=== PATIENT | female | born 1985 | race Caucasian/White ===

== ENCOUNTER → 2018-09-12 | Outpatient (CLI) | payer OTHER ==
[~2018-09-12] MED LIST: BACTRIM DS 8001 TA1 PO; BIAXIN500 MG PO; CIPROFLOXACIN500 MG PO; CYCLOBENZAPRINE5 M3 PO; FERROUS FUMARA325 MG PO; IBUPROFEN600 MG PO; MIRALAX POWDER17 G1 PO; Motrin,Rufen800 MG PO; NORCO 5-325 TA1 EACH PO; ROBITUSSIN; ROBITUSSIN AC,G30 ML PO; VENLAFAXINE37.5 MG PO; VIBRAMYCIN100 MG PO; VICODIN 500 MG-1 TAB PO; VOLTAREN50 M1 PO
[2018-09-12 15:05] LABS: HEMATOCRIT 42.2 % (37.0-47.0); HEMOGLOBIN 13.9 g/dl (12.0-16.0); MEAN CELL VOLUME 94.6 fl (81.0-99.0); MEAN CORPUSCULAR HGB 31.2 pg (27.0-31.0); MEAN CORPUSCULAR HGB CONC 32.9 g/dl (33.0-37.0); MEAN PLATELET VOLUME 10.8 fl (9.6-12.3); RED BLOOD COUNT 4.46 10*6/uL (4.10-5.10); RED CELL DISTRI WIDTH 12.9 % (0-14.5); WHITE BLOOD COUNT 12.3 10*3/uL (4.8-10.8)
[2018-09-12 15:34] LABS: ALBUMIN 3.5 gm/dl (3.1-4.5); ALKALINE PHOSPHATASE 95 U/L (45-117); BUN 7 mg/dl (7-24); CHLORIDE 109 mmol/L (98-107); CREATININE 0.89 mg/dL (0.55-1.02); POTASSIUM 3.9 mmol/L (3.5-5.1); SGOT/AST 28 IU/L (3-35); SGPT/ALT 49 U/L (12-78); SODIUM 141 mmol/L (136-145); TOTAL PROTEIN 7.2 gm/dL (6.4-8.2)
[2018-09-13 09:07] LABS: RHEUMATOID ARTHRITIS FACTOR <10.0 IU/mL (0.0-13.9)
== END | disposition home or self-care (01) ==
LOC: LAB 14:29
PROVIDERS: Family Medicine
DX: E74.00 Glycogen storage disease, unspecified (principal); F41.1 Generalized anxiety disorder; M25.50 Pain in unspecified joint; R53.83 Other fatigue

== ENCOUNTER 2019-05-30 13:56 | Emergency (ER) | payer OTHER ==
[~2019-05-30] VITALS: Ht 152.4 cm; Wt 59.0 kg
[2019-05-30 13:59] VITALS: BP 125/75
[2019-05-30] MEDS ORDERED: AUGMENTIN 875-875 MG PO (16:05)
[2019-05-30] MEDS ORDERED: CORTISPORIN SUS10 ML OT (16:05)
[2019-05-30] MEDS ORDERED: TESSALON PERLE100 M1 PO (16:07)
== END 2019-05-30 16:49 | disposition home or self-care (01) ==
LOC: ED 13:56
DX: H66.91 Otitis media, unspecified, right ear (principal); J06.9 Acute upper respiratory infection, unspecified; J02.9 Acute pharyngitis, unspecified; F17.200 Nicotine dependence, unspecified, uncomplicated

== ENCOUNTER → 2020-11-27 | Outpatient (CLI) | payer OTHER ==
[~2020-11-27] MED LIST changes: +AUGMENTIN 875-875 MG PO; +CORTISPORIN SUS10 ML OT; +TESSALON PERLE100 M1 PO
== END | disposition home or self-care (01) ==
LOC: RAD 16:53
PROVIDERS: ATTEND Nurse Practitioner Family
DX: R06.2 Wheezing (principal); Z20.822 Contact with and (suspected) exposure to COVID-19

== ENCOUNTER → 2020-11-28 | Outpatient (CLI) | payer OTHER ==
[2020-11-28 12:09] LABS: BASO # 0.1 10*3/uL (0.0-0.1); BASO % 1.1 % (0.0-1.0); EOS # 0.4 10*3/uL (0.0-0.4); EOS % 6.8 % (1.0-4.0); HEMATOCRIT 41.6 % (37.0-47.0); LYMPH # 1.5 10*3/uL (1.3-4.4); LYMPH % 28.8 % (27.0-41.0); MEAN CELL VOLUME 94.8 fl (81.0-99.0); MEAN CORPUSCULAR HGB 30.8 pg (27.0-31.0); MEAN CORPUSCULAR HGB CONC 32.5 g/dl (33.0-37.0); MEAN PLATELET VOLUME 11.5 fl (9.6-12.3); MONO # 0.5 10*3/uL (0.1-1.0); MONO % 8.5 % (3.0-9.0); NEUT # 2.9 10*3/uL (2.3-7.9); NEUT % 54.4 % (47.0-73.0); PLATELET COUNT AUTOMATED 203 10*3/uL (130-400); RED BLOOD COUNT 4.39 10*6/uL (4.10-5.10); RED CELL DISTRI WIDTH 13.5 % (0-14.5); WHITE BLOOD COUNT 5.3 10*3/uL (4.8-10.8)
[2020-11-28 12:23] LABS: ALBUMIN 3.4 gm/dl (3.1-4.5); ALKALINE PHOSPHATASE 82 U/L (45-117); BUN 5 mg/dl (7-24); CHLORIDE 108 mmol/L (98-107); CREATININE 0.68 mg/dL (0.55-1.02); POTASSIUM 4.1 mmol/L (3.5-5.1); SGOT/AST 31 IU/L (3-35); SGPT/ALT 31 U/L (12-78); SODIUM 141 mmol/L (136-145); TOTAL PROTEIN 7.2 gm/dL (6.4-8.2)
== END | disposition home or self-care (01) ==
LOC: LAB 11:21
PROVIDERS: ATTEND Family Medicine
DX: R53.83 Other fatigue (principal); J18.9 Pneumonia, unspecified organism

== ENCOUNTER 2021-07-18 13:39 | Emergency (ER) | payer OTHER ==
[~2021-07-18] VITALS: Ht 154.9 cm; Wt 63.5 kg
[2021-07-18 13:49] VITALS: BP 130/90
[2021-07-18] MEDS ORDERED: CIPRODEX 0.3%-7.5 ML OT (14:56)
[2021-07-18] MEDS ORDERED: CEFDINIR300 MG PO (14:56)
== END 2021-07-18 15:05 | disposition home or self-care (01) ==
LOC: ED 13:39
DX: H66.93 Otitis media, unspecified, bilateral (principal); H60.503 Unspecified acute noninfective otitis externa, bilateral; F17.200 Nicotine dependence, unspecified, uncomplicated

== ENCOUNTER → 2022-02-08 | Outpatient (CLI) | payer OTHER ==
[~2022-02-08] MED LIST changes: +CEFDINIR300 MG PO; +CIPRODEX 0.3%-7.5 ML OT
[2022-02-08 18:25] LABS: HEMATOCRIT 45.6 % (37.0-47.0); MEAN CELL VOLUME 94.6 fl (81.0-99.0); MEAN CORPUSCULAR HGB 30.7 pg (27.0-31.0); MEAN CORPUSCULAR HGB CONC 32.5 g/dl (33.0-37.0); MEAN PLATELET VOLUME 10.5 fl (9.6-12.3); RED BLOOD COUNT 4.82 10*6/uL (4.10-5.10); RED CELL DISTRI WIDTH 13.6 % (0-14.5)
[2022-02-08 18:42] LABS: ALKALINE PHOSPHATASE 106 U/L (45-117); BUN 10 mg/dl (7-24); CHLORIDE 106 mmol/L (98-107); CHOLESTEROL 214 mg/dL (<200); CREATININE 0.81 mg/dL (0.55-1.02); LDL CHOLESTEROL 128 mg/dL (9-159); SGOT/AST 18 IU/L (3-35); SGPT/ALT 27 U/L (12-78); SODIUM 140 mmol/L (136-145); TOTAL PROTEIN 8.1 gm/dL (6.4-8.2); TRIGLYCERIDES 220 mg/dl (<150)
[2022-02-10 04:06] LABS: RHEUMATOID FACTOR <10.0 IU/mL (<14.0)
== END | disposition home or self-care (01) ==
LOC: LAB 17:29
PROVIDERS: ATTEND Family Medicine
DX: Z00.00 Encounter for general adult medical examination without abnormal findings (principal); M25.50 Pain in unspecified joint; E55.9 Vitamin D deficiency, unspecified; E03.9 Hypothyroidism, unspecified; M79.10 Myalgia, unspecified site

== ENCOUNTER 2022-02-18 17:45 | Emergency (ER) | payer OTHER ==
[~2022-02-18] VITALS: Ht 154.9 cm; Wt 73.9 kg
[2022-02-18 17:57] VITALS: BP 138/76
[2022-02-18] MEDS ORDERED: AMOX-CLAV 875-1 EACH PO (18:33)
[2022-02-18] MEDS ORDERED: CIPROFLOX-DEXA7.5 ML OT (18:33)
[2022-02-18] MEDS ORDERED: FLONASE ALLERG9.9 ML NAS (18:33)
[2022-02-18] MEDS ORDERED: Elocon 0.1% Cre15 GM T (18:33)
== END 2022-02-18 18:36 | disposition home or self-care (01) ==
LOC: ED 17:45
DX: J32.8 Other chronic sinusitis (principal); L40.9 Psoriasis, unspecified; Z98.51 Tubal ligation status

== ENCOUNTER 2023-07-24 15:27 | Emergency (ER) | payer OTHER ==
[~2023-07-24] VITALS: Ht 154.9 cm; Wt 63.5 kg
[~2023-07-24 15:27] MED LIST changes: +AMOX-CLAV 875-1 EACH PO; +CIPROFLOX-DEXA7.5 ML OT; +Elocon 0.1% Cre15 GM T; +FLONASE ALLERG9.9 ML NAS
[2023-07-24 15:52] VITALS: BP 134/84
[2023-07-24] MEDS ORDERED: Acetaminophen/Hydrocodone 5 MG/325 MG TABLET PO ONE (16:00)
[2023-07-24] MEDS ORDERED: Motrin,Rufen800 MG PO (16:21)
== END 2023-07-24 16:43 | disposition home or self-care (01) ==
LOC: ED 15:27
DX: S63.501A Unspecified sprain of right wrist, initial encounter (principal); Z98.51 Tubal ligation status; W01.0XXA Fall on same level from slipping, tripping and stumbling without subsequent striking against object, initial encounter; Y93.89 Activity, other specified; Y92.89 Other specified places as the place of occurrence of the external cause; Y99.0 Civilian activity done for income or pay

== ENCOUNTER 2023-12-30 14:22 | Emergency (ER) | payer OTHER ==
[~2023-12-30] VITALS: Ht 154.9 cm; Wt 61.2 kg
[2023-12-30 14:29] VITALS: BP 154/86
[2023-12-30] MEDS ORDERED: methylPREDNISolone sod succ 125 MG VIAL IM ONE (14:40)
[2023-12-30] MEDS ORDERED: ACETAMINOPHEN 325 MG TAB PO ONE (14:40)
[2023-12-30] MEDS ORDERED: PREDNISONE50 MG PO (15:47)
== END 2023-12-30 15:49 | disposition home or self-care (01) ==
LOC: ED 14:22
DX: J06.9 Acute upper respiratory infection, unspecified (principal); Z20.822 Contact with and (suspected) exposure to COVID-19; F17.200 Nicotine dependence, unspecified, uncomplicated; Z98.51 Tubal ligation status

== ENCOUNTER 2024-01-20 14:38 | Emergency (ER) | payer OTHER ==
[~2024-01-20] VITALS: Ht 154.9 cm; Wt 72.6 kg
[~2024-01-20 14:38] MED LIST changes: +PREDNISONE50 MG PO
[2024-01-20] MEDS ORDERED: METHOCARBAMOL500 M1 PO (15:38)
[2024-01-20] MEDS ORDERED: Ketorolac Tromethamine 30 MG/ML VIAL IM ONE (15:40)
[2024-01-20] MEDS ORDERED: methylPREDNISolone sod succ 125 MG VIAL IM ONE (15:40)
== END 2024-01-20 15:59 | disposition home or self-care (01) ==
LOC: ED 14:38
DX: S16.1XXA Strain of muscle, fascia and tendon at neck level, initial encounter (principal); M25.511 Pain in right shoulder; F17.200 Nicotine dependence, unspecified, uncomplicated; Z98.51 Tubal ligation status; X58.XXXA Exposure to other specified factors, initial encounter; Y93.89 Activity, other specified; Y92.009 Unspecified place in unspecified non-institutional (private) residence as the place of occurrence of the external cause; Y99.8 Other external cause status

== ENCOUNTER 2024-02-16 17:27 | Emergency (ER) | payer OTHER ==
[~2024-02-16] VITALS: Ht 154.9 cm; Wt 70.3 kg
[~2024-02-16 17:27] MED LIST changes: +METHOCARBAMOL500 M1 PO
[2024-02-16 17:39] VITALS: BP 148/105
[2024-02-16] MEDS ORDERED: Amoxicillin/Clavulanate Pota 875 MG TAB PO ONE (18:05)
[2024-02-16 18:17] LABS: BASO # 0.1 10*3/uL (0.0-0.1); BASO % 0.7 % (0.0-1.0); EOS # 0.7 10*3/uL (0.0-0.4); EOS % 5.7 % (1.0-4.0); HEMATOCRIT 41.8 % (37.0-47.0); LYMPH # 2.4 10*3/uL (1.3-4.4); LYMPH % 21.3 % (27.0-41.0); MEAN CELL VOLUME 95.7 fl (81.0-99.0); MEAN CORPUSCULAR HGB 31.6 pg (27.0-31.0); MEAN PLATELET VOLUME 11.1 fl (9.6-12.3); MONO # 0.8 10*3/uL (0.1-1.0); MONO % 7.2 % (3.0-9.0); NEUT # 7.3 10*3/uL (2.3-7.9); NEUT % 64.7 % (47.0-73.0); PLATELET COUNT AUTOMATED 252 10*3/uL (130-400); RED BLOOD COUNT 4.37 10*6/uL (4.10-5.10); WHITE BLOOD COUNT 11.3 10*3/uL (4.8-10.8)
[2024-02-16 18:44] LABS: BUN 9 mg/dl (9-23); CHLORIDE 107 mmol/L (98-107); POTASSIUM 4.1 mmol/L (3.4-5.1)
[2024-02-16] MEDS ORDERED: AMOX-CLAV 875-1 EACH PO (21:07)
[2024-02-16] MEDS ORDERED: TRAMADOL HCL50 MG PO (21:07)
[2024-02-16] MEDS ORDERED: CIPROFLOX-DEXA7.5 ML OT (21:07)
[2024-02-16] MEDS ORDERED: Elocon 0.1% Cre15 GM T (21:07)
== END 2024-02-16 21:32 | disposition home or self-care (01) ==
LOC: ED 17:27
PROVIDERS: Internal Medicine
DX: H66.93 Otitis media, unspecified, bilateral (principal); H60.93 Unspecified otitis externa, bilateral; J32.9 Chronic sinusitis, unspecified; L40.8 Other psoriasis; F17.200 Nicotine dependence, unspecified, uncomplicated; Z98.51 Tubal ligation status

== ENCOUNTER 2024-07-15 18:59 | Emergency (ER) | payer OTHER ==
[~2024-07-15] VITALS: Ht 154.9 cm; Wt 54.4 kg
[~2024-07-15 18:59] MED LIST changes: +TRAMADOL HCL50 MG PO
[2024-07-15 19:00] VITALS: BP 146/70
[2024-07-15] MEDS ORDERED: Ondansetron4 MG PO (21:38)
[2024-07-15] MEDS ORDERED: Ondansetron Hydrochloride 4 MG TAB SL ONE (21:40)
== END 2024-07-15 21:40 | disposition home or self-care (01) ==
LOC: ED 18:59
DX: S16.1XXA Strain of muscle, fascia and tendon at neck level, initial encounter (principal); S39.012A Strain of muscle, fascia and tendon of lower back, initial encounter; S46.912A Strain of unspecified muscle, fascia and tendon at shoulder and upper arm level, left arm, initial encounter; F17.200 Nicotine dependence, unspecified, uncomplicated; Z79.899 Other long term (current) drug therapy; V89.2XXA Person injured in unspecified motor-vehicle accident, traffic, initial encounter; Y93.89 Activity, other specified; Y92.488 Other paved roadways as the place of occurrence of the external cause; Y99.8 Other external cause status

== ENCOUNTER 2024-09-12 21:13 | Emergency (ER) | payer SELFPAY ==
[~2024-09-12] VITALS: Ht 154.9 cm; Wt 63.5 kg
[~2024-09-12 21:13] MED LIST changes: +Ondansetron4 MG PO
[2024-09-12] MEDS ORDERED: SODIUM CHLORIDE 0.9% 1,000 ML IV ONE (21:30)
[2024-09-12] MEDS ORDERED: methylPREDNISolone sod succ 125 MG VIAL IV ONE (21:30)
[2024-09-12] MEDS ORDERED: Albuterol Sulf/Ipratropium 3 ML VIAL NEB ONE (21:30)
[2024-09-12 21:44] LABS: BASO # 0.1 10*3/uL (0.0-0.1); BASO % 0.9 % (0.0-1.0); EOS # 0.4 10*3/uL (0.0-0.4); EOS % 3.8 % (1.0-4.0); HEMATOCRIT 43.5 % (37.0-47.0); MEAN CELL VOLUME 94.8 fl (81.0-99.0); MEAN CORPUSCULAR HGB 30.3 pg (27.0-31.0); MEAN PLATELET VOLUME 10.4 fl (9.6-12.3); MONO # 0.6 10*3/uL (0.1-1.0); MONO % 5.6 % (3.0-9.0); NEUT % 69.6 % (47.0-73.0); PLATELET COUNT AUTOMATED 317 10*3/uL (130-400); RED BLOOD COUNT 4.59 10*6/uL (4.10-5.10); RED CELL DISTRI WIDTH 13.2 % (0-14.5); WHITE BLOOD COUNT 11.5 10*3/uL (4.8-10.8)
[2024-09-12 22:10] LABS: ALKALINE PHOSPHATASE 85 U/L (46-116); BUN 7 mg/dl (9-23); CHLORIDE 105 mmol/L (98-107); POTASSIUM 3.8 mmol/L (3.4-5.1); SGPT/ALT 16 U/L (5-49)
[2024-09-12] MEDS ORDERED: ACETAMINOPHEN 325 MG TAB PO ONE (22:30)
[2024-09-12 22:55] VITALS: BP 166/94
[2024-09-12] MEDS ORDERED: Doxycycline Hyclate 100 MG CAPSULE PO ONE (22:55)
[2024-09-12] MEDS ORDERED: GUAIFENESIN/DEXTROMETHORPHAN 10 ML UDC PO ONE (22:55)
[2024-09-12] MEDS ORDERED: BROMFED DM COU118 M2 PO (22:56)
[2024-09-12] MEDS ORDERED: VIBRAMYCIN100 MG PO (22:56)
[2024-09-12] MEDS ORDERED: MEDROL DOSEPAK4 MG PO (22:56)
[2024-09-12] MEDS ORDERED: VENT7GM INH (22:56)
== END 2024-09-12 23:08 | disposition home or self-care (01) ==
LOC: ED 21:13
PROVIDERS: Nurse Practitioner Family
DX: J22 Unspecified acute lower respiratory infection (principal); R51.9 Headache, unspecified; F17.200 Nicotine dependence, unspecified, uncomplicated

== ENCOUNTER 2024-09-30 16:48 | Inpatient (IN) | payer SELFPAY ==
[~2024-09-30] VITALS: Ht 152.4 cm; Wt 74.4 kg
[~2024-09-30 16:48] MED LIST changes: +BROMFED DM COU118 M2 PO; +MEDROL DOSEPAK4 MG PO; +VENT7GM INH
[2024-09-30 16:57] VITALS: BP 146/97
[2024-09-30] MEDS ORDERED: methylPREDNISolone sod succ 125 MG VIAL IV ONE (17:05)
[2024-09-30] MEDS ORDERED: Albuterol Sulf/Ipratropium 3 ML VIAL NEB ONE (17:05)
[2024-09-30 17:29] LABS: BASO # 0.1 10*3/uL (0.0-0.1); BASO % 0.8 % (0.0-1.0); EOS # 0.7 10*3/uL (0.0-0.4); EOS % 5.4 % (1.0-4.0); HEMATOCRIT 42.2 % (37.0-47.0); MEAN CELL VOLUME 93.8 fl (81.0-99.0); MEAN CORPUSCULAR HGB 30.7 pg (27.0-31.0); MEAN CORPUSCULAR HGB CONC 32.7 g/dl (33.0-37.0); MEAN PLATELET VOLUME 10.7 fl (9.6-12.3); MONO % 7.7 % (3.0-9.0); NEUT # 8.3 10*3/uL (2.3-7.9); NEUT % 66.6 % (47.0-73.0); PLATELET COUNT AUTOMATED 258 10*3/uL (130-400); RED CELL DISTRI WIDTH 13.4 % (0-14.5); WHITE BLOOD COUNT 12.5 10*3/uL (4.8-10.8)
[2024-09-30 17:52] LABS: BUN 8 mg/dl (9-23); CHLORIDE 105 mmol/L (98-107); POTASSIUM 4.2 mmol/L (3.4-5.1)
[2024-09-30] MEDS ORDERED: Ketorolac Tromethamine 30 MG/ML VIAL IV ONE (18:05)
[2024-09-30] MEDS ORDERED: ACETAMINOPHEN 325 MG TAB PO ONE (18:05)
[2024-09-30] MEDS ORDERED: MAGNESIUM SULFATE 50 ML IV ONE (20:00)
[2024-09-30] MEDS ORDERED: AZITHROMYCIN 250 ML IV ONE (20:00)
[2024-09-30] MEDS ORDERED: cefTRIAXone Sodium 1 GM/10 ML SYR IV ONE (20:00)
[2024-09-30 21:17] VITALS: BP 135/83
[2024-09-30] MEDS ORDERED: methylPREDNISolone sod succ 40 MG VIAL IV SCH (22:00)
[2024-09-30] MEDS ORDERED: Albuterol Sulf/Ipratropium 3 ML VIAL NEB SCH (22:30)
[2024-09-30 22:46] VITALS: BP 1127/75; BP 127/75
[2024-10-01] VITALS: BP 152/84
[2024-10-01 08:00] VITALS: BP 146/80
[2024-10-01] MEDS ORDERED: ACETAMINOPHEN 500 MG TAB PO PRN (10:30)
[2024-10-01] MEDS ORDERED: Benzocaine/Menthol 1 LOZ LOZENGE PO PRN (10:35)
[2024-10-01] MEDS ORDERED: Dextromethorphan Hydrobromid 1 TAB TAB PO SCH (11:27)
[2024-10-01 11:58] VITALS: BP 114/64; BP 145/70
[2024-10-01 16:00] VITALS: BP 102/61; BP 137/83
[2024-10-01 20:00] VITALS: BP 152/87
[2024-10-02] VITALS: BP 146/85
[2024-10-02 08:00] VITALS: BP 134/76
[2024-10-02] MEDS ORDERED: AZITHROMYCIN500 M2 PO (11:09)
[2024-10-02] MEDS ORDERED: ADV 500/50 PO (11:09)
[2024-10-02] MEDS ORDERED: MEDROL DOSEPAK4 MG PO (11:09)
[2024-10-02] MEDS ORDERED: OMEPRAZOLE MAGN20 MG PO (11:12)
[2024-10-02 12:00] VITALS: BP 136/81
== END 2024-10-02 14:10 | disposition home or self-care (01) | DRG 203 ==
LOC: ED 16:48 → 4E 19:58 → EDHOLD 19:58 → 4E 22:34
PROVIDERS: Nurse Practitioner Family; ADMIT Internal Medicine; ATTEND Internal Medicine
DX: J45.21 Mild intermittent asthma with (acute) exacerbation (principal); J98.4 Other disorders of lung; F17.210 Nicotine dependence, cigarettes, uncomplicated; Z79.899 Other long term (current) drug therapy; Z79.01 Long term (current) use of anticoagulants; Z82.49 Family history of ischemic heart disease and other diseases of the circulatory system